=== PATIENT | female | born 1985 | race Caucasian/White ===

== ENCOUNTER 2017-02-20 14:40 | Emergency (ER) | payer BC ==
[~2017-02-20] VITALS: Ht 160 cm; Wt 79.5 kg
[2017-02-20 14:53] VITALS: Ht 160 cm; Wt 79.5 kg
--- NOTE | 2017-02-20 15:21 | ERD ---
ER Documentation Chief Complaint Date/Time DATE: 02/20/17 TIME: 15:19 Chief Complaint CP THAT FEELS LIKE PRESSURE ALSO HAS EPIGASTRIC PAIN WITH N/V HPI 32-year-old female comes into the emergency department with 2 weeks of epigastric abdominal pain that radiates to her left upper and right upper quadrant. This is describes as achy burning sensation, and radiates to her chest 1 day. She reports that she has tried Zantac, Mylanta as well as Tums [id number] and ibuprofen. She has a history of cholecystectomy several years ago, has not had pain like this recently. She has not had a fever, chills , nausea or vomiting. Patient denies alcohol use. Patient states that she had her "gallbladder taken out" at [facility] when she was 15. Patient states that she still has her appendix. ROS All systems reviewed and are negative except as per history of present illness. Medications Home Meds Active Scripts Omeprazole* (Omeprazole*) 20 Mg Capsule.dr, 20 MG PO BID, #60 Prov:RICHA HAIDER PA-C 02/20/17 Ranitidine Hcl* (Zantac*) 150 Mg Tablet, 150 MG PO BID Y for EPIGASTRIC PAIN, # 30 TAB Prov:RICHA HAIDER PA-C 02/20/17 Hydrocodone/Acetaminophen (Gilman 5-325 Tablet) 1 Each Tablet, 1 TAB PO Q6H Y for PAIN, #7 TAB Prov:RICHA HAIDER PA-C 02/20/17 Allergies Allergies: Coded Allergies: No Known Allergies (Unverified Allergy, Unknown, 02/20/17) PMhx/Soc Medical and Surgical Hx: pt denies Surgical Hx History of Surgery: Yes (ECTOPIC SURGERY) Anesthesia Reaction: No Hx Neurological Disorder: No Hx Respiratory Disorders: No Hx Cardiac Disorders: No Hx Psychiatric Problems: No Hx Miscellaneous Medical Probl: No Hx Alcohol Use: No Hx Substance Use: No Hx Tobacco Use: No Smoking Status: Never smoker Physical Exam Vitals Vital Signs Date Time Temp Pulse Resp B/P Pulse Ox O2 Delivery O2 Flow Rate FiO2 02/20/17 14:53 98.9 75 18 140/76 100 Physical Exam General: Well-developed, well-nourished. The patient appears in no acute distress. HEENT: Head is normocephalic, atraumatic. No scleral icterus. Neck: Supple. Nontender. Lungs: Clear to auscultation. Normal air movement. Heart: Regular rate and rhythm. S1 and S2 are normal. No murmurs, gallops, or rubs. Abdomen: Soft, patient has tenderness in epigastrium, left upper quadrant, nondistended. Bowel sounds are normoactive. Negative Hyatt sign, no McBurney' s tenderness. 3 scars that are approximately 0.5 cm, in right mid, right lower and periumbilical area Extremities: No clubbing or cyanosis. Normal pulses. Moving extremities x 4. No weakness. Neurologic: Alert and oriented 3. No focal deficits. Skin: Normal turgor. No rash or lesions. Result Diagram: 02/20/17 1548 02/20/17 1548 Results 24 hrs Laboratory Tests Test 02/20/17 15:45 02/20/17 15:48 Urine Color LT. YELLOW Urine Clarity CLEAR Urine pH 5.0 Urine Specific [place] <=1.005 Urine Ketones NEGATIVE Urine Nitrite NEGATIVE Urine Bilirubin NEGATIVE Urine Urobilinogen 0.2 E.U./dL Urine Leukocyte Esterase 1+ Urine Microscopic RBC 0-2/HPF Urine Microscopic WBC 2-5/HPF Urine Squamous Epithelial Cells FEW Urine Hemoglobin TRACE Urine Glucose NEGATIVE% Urine Total Protein NEGATIVE White Blood Count 12.810^3/ul Red Blood Count 5.4910^6/ul Hemoglobin 13.5g/dl Hematocrit 42.2% Mean Corpuscular Volume 76.9fl Mean Corpuscular Hemoglobin 24.6pg Mean Corpuscular Hemoglobin Concent 32.0g/dl Red Cell Distribution Width 13.1% Platelet Count 43521^3/UL Mean Platelet Volume 9.1fl Neutrophils % 65.3% Lymphocytes % 27.4% Monocytes % 5.2% Eosinophils % 1.6% Basophils % 0.2% Nucleated Red Blood Cells % 0.0/100WBC Neutrophils # 8.410^3/ul Lymphocytes # 3.510^3/ul Monocytes # 0.710^3/ul Eosinophils # 0.210^3/ul Basophils # 0.010^3/ul Nucleated Red Blood Cells # 0.010^3/ul Sodium Level 140mmol/L Potassium Level 3.7mmol/L Chloride Level 101mmol/L Carbon Dioxide Level 25mmol/L Anion Gap 18 Blood Urea Nitrogen 8mg/dl Creatinine 0.66mg/dl Glucose Level 91mg/dl Calcium Level 9.3mg/dl Total Bilirubin 0.1mg/dl Direct Bilirubin 0.00mg/dl Indirect Bilirubin 0.1mg/dl Aspartate Amino Transf (AST/SGOT) 19IU/L Alanine Aminotransferase (ALT/SGPT) 25IU/L Alkaline Phosphatase 95IU/L Total Protein 8.0g/dl Albumin 4.8g/dl Globulin 3.20g/dl Albumin/Globulin Ratio 1.50 Lipase 43U/L Current Medications Medications (Trade) Dose Ordered Sig/Tamika Route PRN Reason Start Time Stop Time Status Last Admin Dose Admin Acetaminophen/ Hydrocodone Bitart (Gilman (5/325)) 1 tab ONCE ONCE PO 02/20/17 15:30 02/20/17 15:31 DC 02/20/17 15:58 PROCEDURE: US Abdomen. CLINICAL INDICATION: abdominal pain TECHNIQUE: Multiple real-time images were acquired of the patient's right upper quadrant abdomen and retroperitoneum utilizing a high resolution transducer. COMPARISON: None FINDINGS: The liver demonstrates normal echogenicity. The liver is normal in size and no focal solid lesions are seen. The liver measures 14 cm in length. The portal vein is patent with normal direction of flow. No intrahepatic biliary dilatation is seen. No gallstones are identified within the gallbladder. There is no pericholecystic fluid or gallbladder wall thickening. The common bile duct measures 4 mm in maximal dimension. The visualized portions of the pancreas are unremarkable. The tail of the pancreas is not seen. No free fluid is identified. The right kidney is normal in size, and demonstrate normal echogenicity and cortical thickness. The right kidney measures 10.4 cm in long dimension. There is no evidence of hydronephrosis. There are no kidney stones. RPTAT: AA IMPRESSION: Unremarkable right upper quadrant abdominal ultrasound. Normal appearance of the gallbladder. No evidence of gallstones. .Edmund Foster MD, MD Date Time Electronically viewed and signed by .Edmund Foster MD, on 02/20/2017 15: 47 PROCEDURE: CT KUB. CLINICAL INDICATION: RLQ pain TECHNIQUE: CT KUB (Renal Stone Survey) without contrast was performed on a GE volumetric [address] scanner. No IV contrast was administered. 3-D coronal reformatted images were obtained from the axial source images. COMPARISON: No prior studies are available for comparison. CTDI: 12.4 mGy DLP: 694 mGy-cm FINDINGS: Limited evaluation of the lung bases are clear. The unenhanced liver, spleen, bilateral adrenal glands, gallbladder, and pancreas are normal-appearing. Bilateral kidneys are normal-appearing. No renal calculus. No hydronephrosis. The urinary bladder and uterus are grossly unremarkable. Bilateral essure devices are present at the central fallopian tubes. The small and large bowel are thin-walled and nondilated without evidence of obstruction. The appendix is normal. No free air, free fluid, mesenteric stranding, nor abdominal pelvic adenopathy. The abdominal aorta is normal in caliber without aneurysm. No suspicious osseous lesions. A cystic structure in the left adnexa is suboptimally evaluated but may represent a dominant physiologic ovarian follicle. IMPRESSION: 1.Unremarkable CT KUB. 2.No urolithiasis or obstructive uropathy is present. Physician Galileo Date Time Electronically viewed and signed by Geraldo Joe Physician on 02/20/2017 17 :36 ML/ Procedures/MDM ED course: Blood and urine were obtained. She was given Gilman for pain. The patient's abdominal pain was reexamined. Patient was sitting comfortably with improved pain. Patient was not in any distress. MDM: 32-year-old female comes with epigastric abdominal pain for 2 weeks, patient had a full workup including labs, urine. Patient states that she believes her gallbladder was removed, and ultrasound was done, gallbladder was visualized however no abnormalities at this time in the acute surgical evaluation. Patient also reports some of her pain is radiating to the right lower quadrant, CT was followed up and there is no evidence of appendicitis. Urine does show 1+ leukocyte esterase, patient will be treated with Keflex this is likely gastritis versus GERD. I advised her to continue the medications as prescribed, if no improvement she may need an endoscopy outpatient. She does not have any signs or symptoms concerning for upper GI bleed and will be discharged home per Departure Diagnosis: Primary Impression: Abdominal pain Condition: Good RICHA HAIDER PA-C February 20, 2017 15:21
[2017-02-20] MEDS ORDERED: HYDROCODONE/APAP (5/325) TAB PO ONE (15:30)
--- NOTE | 2017-02-20 15:48 | RADRPT ---
PROCEDURE: US Abdomen. CLINICAL INDICATION: abdominal pain TECHNIQUE: Multiple real-time images were acquired of the patient's right upper quadrant abdomen a nd retroperitoneum utilizing a high resolution transducer. COMPARISON: None FINDINGS: The liver demonstrates normal echogenicity. The liver is normal in size and no focal solid lesions are seen. The liver measures 14 cm in length. The portal vein is patent with normal direction of hilda w. No intrahepatic biliary dilatation is seen. No gallstones are identified within the gallbladder. There is no pericholecystic fluid or gallbladd er wall thickening. The common bile duct measures 4 mm in maximal dimension. The visualized portions of the pancreas are unremarkable. The tail of the pancreas is not seen. No free fluid is identified. The right kidney is normal in size, and demonstrate normal echogenicity and cortical thickness. The right kidney measures 10.4 cm in long dimension. There is no evidence of hydronephrosis. There are no kidney stones. RPTAT: AA IMPRESSION: Unremarkable right upper quadrant abdominal ultrasound. Normal appearance of the gallbladder. No evidence of gallstones. .Edmund Foster MD, MD Date Time Electronically viewed and signed by .Edmund Foster MD, on 02/20/2017 15:47 .S/
[2017-02-20 16:10] LABS: ADD UMIC YES; URINE BILIRUBIN (Dip) NEGATIVE (NEGATIVE); URINE BLOOD (Dip) TRACE (NEGATIVE); URINE COLOR LT. YELLOW (YELLOW); URINE GLUCOSE (Dip) NEGATIVE (NEGATIVE); URINE KETONES (Dip) NEGATIVE (NEGATIVE); URINE LEUKOCYTE ESTERASE (Dip) 1+ (NEGATIVE); URINE NITRITE (Dip) NEGATIVE (NEGATIVE); URINE TOTAL PROTEIN (Dip) NEGATIVE (NEGATIVE); URINE UROBILINOGEN (Dip) 0.2 E.U./dL (0.1-1.0)
[2017-02-20 16:17] LABS: ADD SCAN DIFF NO
[2017-02-20 16:22] LABS: BASOPHILS % 0.2 % (0.0-2.0); EOSINOPHILS # 0.2 10^3/ul (0.0-0.5); EOSINOPHILS % 1.6 % (0.0-7.0); HEMATOCRIT 42.2 % (37.0-47.0); HEMOGLOBIN 13.5 g/dl (12.0-16.0); LYMPHOCYTES # 3.5 10^3/ul (0.8-2.9); LYMPHOCYTES % 27.4 % (15.0-51.0); MEAN CORPUSCULAR HEMOGLOBIN 24.6 pg (29.0-33.0); MEAN CORPUSCULAR VOLUME 76.9 fl (82.0-101.0); MEAN PLATELET VOLUME 9.1 fl (7.4-10.4); MONOCYTE # 0.7 10^3/ul (0.3-0.9); MONOCYTES % 5.2 % (0.0-11.0); NEUTROPHIL # 8.4 10^3/ul (1.6-7.5); NEUTROPHILS % 65.3 % (39.0-77.0); PLATELET COUNT 476 10^3/UL (140-415); RED BLOOD COUNT 5.49 10^6/ul (4.20-5.40); RED CELL DISTRIBUTION WIDTH 13.1 % (11.5-14.5); WHITE BLOOD COUNT 12.8 10^3/ul (4.8-10.8)
[2017-02-20 16:23] LABS: SQUAMOUS EPITHELIAL CELL,UR FEW; URINE RBCS 0-2 /HPF (0)
[2017-02-20 16:51] LABS: ALBUMIN 4.8 g/dl (3.3-4.9); POTASSIUM 3.7 mmol/L (3.5-5.1)
[2017-02-20 16:56] LABS: ALBUMIN/GLOBULIN RATIO 1.5; BILIRUBIN,INDIRECT 0.1 mg/dl (0-1.1); BILIRUBIN,TOTAL 0.1 mg/dl (0.2-1.3); CALCIUM 9.3 mg/dl (8.4-10.2); CREATININE 0.66 mg/dl (0.44-1.00)
--- NOTE | 2017-02-20 17:37 | RADRPT ---
PROCEDURE: CT KUB. CLINICAL INDICATION: RLQ pain TECHNIQUE: CT KUB (Renal Stone Survey) without contrast was performed on a GE volumetric [address] scanner. No IV contrast was administered. 3-D coronal reformatted images were obtained from the axial source images. COMPARISON: No prior studies are available for comparison. CTDI: 12.4 mGy DLP: 694 mGy-cm FINDINGS: Limited evaluation of the lung bases are clear. The unenhanced liver, spleen, bilateral adrenal glands, gallbladder, and pancreas are normal-appeari ng. Bilateral kidneys are normal-appearing. No renal calculus. No hydronephrosis. The urinary bladder and uterus are grossly unremarkable. Bilateral essure devices are present at the central fallopian tubes. The small and large bowel are thin-walled and nondilated without evidence of obstruction. The appen lanie is normal. No free air, free fluid, mesenteric stranding, nor abdominal pelvic adenopathy. The abdominal aorta is normal in caliber without aneurysm. No suspicious osseous lesions. A cystic structure in the left adnexa is suboptimally evaluated but may represent a dominant physiologic ovarian follicle. IMPRESSION: 1.Unremarkable CT KUB. 2.No urolithiasis or obstructive uropathy is present. Physician Galileo Date Time Electronically viewed and signed by Physician Galileo on 02/20/2017 17:36 ML/
[2017-02-20] MEDS ORDERED: OMEP20CA16 PO (17:45)
[2017-02-20] MEDS ORDERED: RANI150T9 PO (17:45)
[2017-02-20] MEDS ORDERED: HYDR-906 PO (17:45)
[2017-02-20] MEDS ORDERED: CEPH-443 PO (17:47)
== END 2017-02-20 17:57 | disposition home or self-care (01) ==
LOC: FTE 14:40
DX: R10.13 Epigastric pain (principal)
CPT/HCPCS: 74176; 76705; 80053; 81001; 83690; 85025; 99285; Z7610

== ENCOUNTER 2019-03-31 06:22 | Day surgery (SDC) | payer BC ==
[~2019-03-31] VITALS: Ht 160 cm; Wt 80.4 kg
[2019-03-31] VITALS (9 sets, daily range): BP systolic 95–113; BP diastolic 57–72; PULSE 56–70; RESP 14–24; Ht 160 cm; Wt 80.4 kg
[~2019-03-31 06:22] MED LIST: CEPH-443 PO; HYDR-4011 PO; OMEP20CA16 PO; RANI150T35 PO
[2019-03-31] MEDS ORDERED: MIDAZOLAM 1 MG/ML 2 ML INJ ONE ×2 (08:39)
[2019-03-31] MEDS ORDERED: FENTAnyl 50 MCG/ML VIAL ONE (08:39)
== END 2019-03-31 10:39 | disposition home or self-care (01) ==
LOC: GIL 06:22
PROVIDERS: ATTEND Internal Medicine Gastroenterology
DX: K29.70 Gastritis, unspecified, without bleeding (principal); K44.9 Diaphragmatic hernia without obstruction or gangrene; K21.9 Gastro-esophageal reflux disease without esophagitis; K64.8 Other hemorrhoids; R19.4 Change in bowel habit
CPT/HCPCS: 43239; 45378; 88305; J2250; J3010; Z7610